=== PATIENT | male | born 1990 | race Caucasian/White ===

== ENCOUNTER 2020-01-14 15:47 | Emergency (ER) | payer BC ==
[2020-01-14] MEDS ORDERED: Adacel (T-DAP) 0.5 ML SYRINGE ONE (16:06)
[2020-01-14] MEDS ORDERED: HYDROcodone/Acetaminophen 5/325 mg Tablet ONE (16:06)
[2020-01-14] MEDS ORDERED: Bacitracin 1 PK ONE ×2 (16:39→16:48)
--- NOTE | 2020-01-14 16:41 | RAD ---
3 views left thumb: 01/14/2020 COMPARISON: None HISTORY: Partial amputation, saw injury FINDINGS: There is prominent soft tissue defect at the distal tip of the first distal phalanx. There is an associated nondisplaced fracture involving the distal tip of the first distal phalanx. No intra-articular extension or dislocation. IMPRESSION: Prominent soft tissue defect at the distal aspect of the thumb with a mildly comminuted f racture at the distal tip of the first distal phalanx.
== END 2020-01-14 17:00 | disposition home or self-care (01) ==
LOC: NAV ERS 15:47
DX: S68.022A Partial traumatic metacarpophalangeal amputation of left thumb, initial encounter (principal); F32.9 Major depressive disorder, single episode, unspecified; F90.9 Attention-deficit hyperactivity disorder, unspecified type; Z87.891 Personal history of nicotine dependence; Z23 Encounter for immunization; W27.8XXA Contact with other nonpowered hand tool, initial encounter
CPT/HCPCS: 90471; 90715